=== PATIENT | male | born 2000 | race Hispanic/Latino ===

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

== ENCOUNTER 2020-06-03 00:06 | Inpatient (IN) | payer BC, OTHER, SELFPAY ==
[2020-06-03] VITALS (24 sets, daily range): BP systolic 125–148; BP diastolic 56–94
[~2020-06-03] VITALS: Ht 165.1 cm; Wt 81.4 kg
[2020-06-03 00:41] LABS: BASOPHILS % (AUTO) 0.3 % (0.0-5.0); EOSINOPHILS % (AUTO) 2.8 % (0.0-8.0); HEMATOCRIT 39.6 % (42-54); LYMPHOCYTES % (AUTO) 23.7 % (21.0-51.0); MEAN CORPUSCULAR HEMOGLOBIN 30.3 pg (27.0-33.0); MEAN CORPUSCULAR HGB CONC 34.6 g/dL (32.0-36.0); MEAN CORPUSCULAR VOLUME 87.6 fL (80-100); MONOCYTES % (AUTO) 10.3 % (3.0-13.0); NEUTROPHILS % (AUTO) 62.5 % (40.0-77.0); PLATELET COUNT (AUTO) 316 K/uL (130-400); RED BLOOD CELL COUNT(AUTO) 4.52 MIL/uL (4.50-6.20); RED CELL DISTRIBUTION WIDTH 11.5 % (11.0-15.5); WHITE BLOOD COUNT (AUTO) 12.5 K/uL (4.8-10.8)
[2020-06-03] MEDS ORDERED: MORPHINE SULFATE 2 MG/ML 1ML SYG ONE ×2 (00:46→10:59)
[2020-06-03 00:52] LABS: INR 0.88 (0.85-1.15); PARTIAL THROMBOPLASTIN TIME 29.7 SEC (26.3-35.5); PROTHROMBIN TIME 9.6 SEC (9.6-11.6)
[2020-06-03 00:58] LABS: CREATININE 0.9 mg/dL (0.5-1.5); POTASSIUM 3.6 mmol/L (3.5-5.1)
[2020-06-03 01:02] LABS: ALBUMIN 3.8 g/dL (3.5-5.0); BILIRUBIN,TOTAL 0.2 mg/dL (0.2-1.0); TOTAL PROTEIN, SERUM 8.4 g/dL (6.0-8.3)
[2020-06-03] MEDS ORDERED: IOHEXOL-350 75 ML VIAL IV ONE (01:34)
[2020-06-03] MEDS ORDERED: ZOSYN 3.375GM+NS 50ML 50 ML IV ONE ×2 (02:21→11:59)
[2020-06-03 02:33] LABS: APPEARANCE,URINE Clear (CLEAR); BILIRUBIN,URINE Negative (NEGATIVE); COLOR,URINE Yellow (YELLOW); GLUCOSE, URINE (UA) Negative (NEGATIVE); KETONES,URINE Negative (NEGATIVE); LEUKOCYTE ESTERASE ,URINE Negative (NEGATIVE); NITRATE,URINE Negative (NEGATIVE); OCCULT BLOOD,URINE Negative (NEGATIVE); PROTEIN,URINE Negative (NEGATIVE); UROBILINOGEN,URINE 0.2 mg/dL (0.2-1.0)
[2020-06-03] MEDS ORDERED: ONDANSETRON HCL 4 MG/2 ML VIAL IV PRN (03:30)
[2020-06-03] MEDS ORDERED: DiphenhydrAMINE HCL 50 MG/ML VIAL IV PRN (03:30)
[2020-06-03] MEDS ORDERED: DIPHENHYDRAMINE HCL 25 MG CAPSULE PO PRN (03:30)
[2020-06-03] MEDS ORDERED: GUAIFENESIN-DM 200/20 MG 10 ML PO PRN (03:30)
[2020-06-03] MEDS ORDERED: MAG HYDROX/AL HYDROX/SIMETH ES 30 ML SUSP UDCUP PO PRN (03:30)
[2020-06-03] MEDS ORDERED: MORPHINE SULFATE 2 MG/ML 1ML SYG IV PRN (03:30)
[2020-06-03] MEDS: ZOSYN 3.375GM+NS 50ML 50 ML IV SCH ×3 (03:30→19:50)
[2020-06-03] MEDS ORDERED: LACTULOSE 20 GM/30 ML UDCUP PO PRN (03:30)
[2020-06-03] MEDS ORDERED: ACETAMINOPHEN 325 MG TAB PO PRN ×2 (03:30)
[2020-06-03] MEDS ORDERED: NITROGLYCERIN 0.4 MG SL TAB SL PRN (03:30)
[2020-06-03] MEDS ORDERED: ZOLPIDEM TARTRATE 5 MG TAB PO PRN (03:30)
[2020-06-03] MEDS ORDERED: PHARMACY COMMUNICATION MISC SCH (04:30)
[2020-06-03] MEDS ORDERED: FAMOTIDINE/PF 20 MG/2 ML VIAL IV ONE (07:53)
[2020-06-03] MEDS ORDERED: MORPHINE SULFATE 4 MG/1ML SYG ONE (07:53)
[2020-06-03] MEDS: FAMOTIDINE/PF 20 MG/2 ML VIAL IV SCH ×2 (09:00→19:50)
[2020-06-03] MEDS ORDERED: DEXAMETHASONE SOD PHOSPHATE 10MG/ML 1ML VIAL ONE (14:27)
[2020-06-03] MEDS ORDERED: MIDAZOLAM HCL 1 MG/ML 2ML VIAL ONE (14:27)
[2020-06-03] MEDS ORDERED: SUCCINYLCHOLINE CHLORIDE 20 MG/ML 10 ML VIAL ONE (14:27)
[2020-06-03] MEDS ORDERED: LIDOCAINE PF 2% 5ML ABBOJECT ONE (14:27)
[2020-06-03] MEDS ORDERED: ONDANSETRON HCL 4 MG/2 ML VIAL ONE (14:28)
[2020-06-03] MEDS ORDERED: PROPOFOL 10 MG/ML 20ML VIAL IV ONE (14:28)
[2020-06-03] MEDS ORDERED: GLYCOPYRROLATE 1 MG/5 ML SYRINGE ONE (14:28)
[2020-06-03] MEDS ORDERED: NEOSTIGMINE 5MG/5ML SYR IV ONE (14:29)
[2020-06-03] MEDS ORDERED: FENTANYL CITRATE PF 50 MCG/1 ML 2ML VIAL ONE ×3 (14:29→16:11)
[2020-06-03] MEDS ORDERED: ROCURONIUM 10MG/1ML SYR 10 MG/ML ML ONE (14:29)
[2020-06-03] MEDS ORDERED: BUPIVACAINE/PF 0.5% 10ML VIAL ONE (15:33)
--- NOTE | 2020-06-03 16:54 | NUR ---
KWADWO NOTE/IA UNABLE TO SPEAK TO PATIENT IN ROOM, NEXT OF KIN CALLED, ROHINI LEDBETTER. PER MOTHER, PATIENT LIVES WITH EXTENSIVE FAMILY, NO DME, WORKS, DRIVES, NO COMMUNITY RESOURCES IN USE, AND FEELS SAFE FOR PATIENT TO RETURN HOME ONCE DISCHARGED. Addendum: 06/04/20 at 1721 by DILLON ZAPATA RN CM Amended: Links added.
[2020-06-03] MEDS ORDERED: KETOROLAC TROMETHAMINE 30MG/ML ONE (17:24)
[2020-06-03] MEDS ORDERED: MEPERIDINE-PF 25 MG/ML SYG ONE (17:35)
[2020-06-03] MEDS: LACTATED RINGERS 1000ML 1,000 ML, LACTATED RINGERS 1000ML 1,000 ML IV SCH ×2 (19:24→19:51)
[2020-06-03] MEDS ORDERED: LACTATED RINGERS 1000ML 1,000 ML IV ONE (19:46)
[2020-06-04] VITALS (7 sets, daily range): BP systolic 128–137; BP diastolic 70–84
[2020-06-04] MEDS ORDERED: LACTATED RINGERS 1000ML 1,000 ML IV ONE (02:58)
[2020-06-04] MEDS: LACTATED RINGERS 1000ML 1,000 ML, LACTATED RINGERS 1000ML 1,000 ML IV SCH ×2 (02:59→18:40)
[2020-06-04] MEDS ORDERED: KETOROLAC TROMETHAMINE 30MG/ML IV PRN (03:45)
[2020-06-04] MEDS: ZOSYN 3.375GM+NS 50ML 50 ML IV SCH ×3 (03:47→18:26)
--- NOTE | 2020-06-04 04:29 | NUR ---
STATUS Pt ambulating in the room,lalo well.Post open Appendectomy 06/03/2020.Abdominal dressing dry and intact,Bradley to left side to bulb suction with approx 50 ml serousanguinous drainage.Abdomen soft,hypoactive bowel sounds.Pt was medicated with Morphine for pain and verbalized relief of pain.Iv site to rt antecubital site within normal limits.
[2020-06-04 04:38] LABS: BASOPHILS % (AUTO) 0.2 % (0.0-5.0); HEMATOCRIT 36.8 % (42-54); LYMPHOCYTES % (AUTO) 5.9 % (21.0-51.0); MEAN CORPUSCULAR HEMOGLOBIN 30.2 pg (27.0-33.0); MEAN CORPUSCULAR HGB CONC 34.5 g/dL (32.0-36.0); MEAN CORPUSCULAR VOLUME 87.6 fL (80-100); MONOCYTES % (AUTO) 9.6 % (3.0-13.0); NEUTROPHILS % (AUTO) 83.7 % (40.0-77.0); PLATELET COUNT (AUTO) 315 K/uL (130-400); RED CELL DISTRIBUTION WIDTH 11.6 % (11.0-15.5); WHITE BLOOD COUNT (AUTO) 17.7 K/uL (4.8-10.8)
[2020-06-04 05:15] LABS: BILIRUBIN,TOTAL 0.6 mg/dL (0.2-1.0); CREATININE 0.8 mg/dL (0.5-1.5); POTASSIUM 3.8 mmol/L (3.5-5.1); TOTAL PROTEIN, SERUM 7.5 g/dL (6.0-8.3)
[2020-06-04] MEDS: FAMOTIDINE/PF 20 MG/2 ML VIAL IV SCH ×2 (09:03→20:22)
--- NOTE | 2020-06-04 16:25 | NUR ---
dressing changed to abd area including rae dressing changed. okay as per SUSI zafar.
[2020-06-04] MEDS: MORPHINE SULFATE 4 MG/1ML SYG IV PRN (20:22)
[2020-06-05] MEDS: MORPHINE SULFATE 4 MG/1ML SYG IV PRN (02:51)
[2020-06-05] MEDS: ZOSYN 3.375GM+NS 50ML 50 ML IV SCH ×3 (02:52→21:12)
[2020-06-05 03:29] VITALS: BP 124/79
[2020-06-05 04:46] LABS: BASOPHILS % (AUTO) 0.2 % (0.0-5.0); HEMATOCRIT 40.4 % (42-54); LYMPHOCYTES % (AUTO) 4.1 % (21.0-51.0); MEAN CORPUSCULAR HEMOGLOBIN 31.2 pg (27.0-33.0); MEAN CORPUSCULAR HGB CONC 34.7 g/dL (32.0-36.0); MONOCYTES % (AUTO) 11.3 % (3.0-13.0); NEUTROPHILS % (AUTO) 83.8 % (40.0-77.0); PLATELET COUNT (AUTO) 358 K/uL (130-400); RED BLOOD CELL COUNT(AUTO) 4.49 MIL/uL (4.50-6.20); RED CELL DISTRIBUTION WIDTH 11.8 % (11.0-15.5); WHITE BLOOD COUNT (AUTO) 21.3 K/uL (4.8-10.8)
[2020-06-05 05:04] LABS: ALBUMIN 3.2 g/dL (3.5-5.0); BILIRUBIN,TOTAL 1.4 mg/dL (0.2-1.0); POTASSIUM 4.1 mmol/L (3.5-5.1); TOTAL PROTEIN, SERUM 8.2 g/dL (6.0-8.3)
[2020-06-05 08:00] VITALS: BP 134/84
[2020-06-05] MEDS: FAMOTIDINE/PF 20 MG/2 ML VIAL IV SCH ×2 (08:26→21:12)
[2020-06-05 12:00] VITALS: BP 135/86
[2020-06-05] MEDS: FLUCONAZOLE 400 MG/NS 200 ML 200 ML IV SCH (13:04)
[2020-06-05 16:00] VITALS: BP 126/84
[2020-06-05] MEDS: LACTATED RINGERS 1000ML 1,000 ML, LACTATED RINGERS 1000ML 1,000 ML IV SCH (19:24)
[2020-06-05 20:00] VITALS: BP 118/61
[2020-06-05] MEDS ORDERED: ZOSYN 3.375GM+NS 50ML 50 ML IV ONE (20:15)
[2020-06-06] VITALS: BP 103/50
[2020-06-06 03:44] VITALS: BP 114/64
[2020-06-06 04:26] LABS: BASOPHILS % (AUTO) 0.4 % (0.0-5.0); EOSINOPHILS % (AUTO) 2.7 % (0.0-8.0); LYMPHOCYTES % (AUTO) 13.6 % (21.0-51.0); MEAN CORPUSCULAR HEMOGLOBIN 30.6 pg (27.0-33.0); MONOCYTES % (AUTO) 13.2 % (3.0-13.0); NEUTROPHILS % (AUTO) 69.6 % (40.0-77.0); PLATELET COUNT (AUTO) 296 K/uL (130-400); RED BLOOD CELL COUNT(AUTO) 3.89 MIL/uL (4.50-6.20); RED CELL DISTRIBUTION WIDTH 11.7 % (11.0-15.5); WHITE BLOOD COUNT (AUTO) 14.9 K/uL (4.8-10.8)
[2020-06-06 04:53] LABS: ALBUMIN 2.3 g/dL (3.5-5.0); BILIRUBIN,TOTAL 1.4 mg/dL (0.2-1.0); POTASSIUM 3.9 mmol/L (3.5-5.1); TOTAL PROTEIN, SERUM 6.7 g/dL (6.0-8.3)
[2020-06-06] MEDS: ZOSYN 3.375GM+NS 50ML 50 ML IV SCH ×3 (06:00→21:03)
[2020-06-06 08:00] VITALS: BP 116/57
[2020-06-06] MEDS: LACTATED RINGERS 1000ML 1,000 ML IV SCH ×2 (11:30→21:03)
[2020-06-06 12:00] VITALS: BP 121/61
[2020-06-06] MEDS: FAMOTIDINE/PF 20 MG/2 ML VIAL IV SCH ×2 (14:26→21:03)
[2020-06-06] MEDS: FLUCONAZOLE 400 MG/NS 200 ML 200 ML IV SCH (14:27)
[2020-06-06 16:00] VITALS: BP 122/66
[2020-06-06 20:00] VITALS: BP 133/53
[2020-06-07] VITALS (7 sets, daily range): BP systolic 112–142; BP diastolic 71–85
[2020-06-07] MEDS: LACTATED RINGERS 1000ML 1,000 ML IV SCH ×3 (03:30→19:30)
[2020-06-07] MEDS: ZOSYN 3.375GM+NS 50ML 50 ML IV SCH ×3 (05:39→21:03)
[2020-06-07 06:08] LABS: BASOPHILS % (AUTO) 0.4 % (0.0-5.0); HEMATOCRIT 33.1 % (42-54); LYMPHOCYTES % (AUTO) 11.2 % (21.0-51.0); MEAN CORPUSCULAR HEMOGLOBIN 30.8 pg (27.0-33.0); MEAN CORPUSCULAR HGB CONC 34.4 g/dL (32.0-36.0); MEAN CORPUSCULAR VOLUME 89.5 fL (80-100); MONOCYTES % (AUTO) 11.4 % (3.0-13.0); NEUTROPHILS % (AUTO) 73.3 % (40.0-77.0); PLATELET COUNT (AUTO) 389 K/uL (130-400); RED CELL DISTRIBUTION WIDTH 11.5 % (11.0-15.5); WHITE BLOOD COUNT (AUTO) 14.9 K/uL (4.8-10.8)
[2020-06-07 06:27] LABS: CREATININE 0.8 mg/dL (0.5-1.5); POTASSIUM 3.7 mmol/L (3.5-5.1)
[2020-06-07] MEDS: FAMOTIDINE/PF 20 MG/2 ML VIAL IV SCH ×2 (10:36→21:04)
[2020-06-07] MEDS: FLUCONAZOLE 400 MG/NS 200 ML 200 ML IV SCH (12:46)
--- NOTE | 2020-06-07 13:03 | NUR ---
dressing changed to abd and drain.. incisions clean and dry . ghazala intact .patient tolerated well
[2020-06-08] VITALS: BP 144/72
[2020-06-08] MEDS: LACTATED RINGERS 1000ML 1,000 ML IV SCH (03:33)
[2020-06-08 04:00] VITALS: BP 134/77
[2020-06-08] MEDS: ZOSYN 3.375GM+NS 50ML 50 ML IV SCH ×2 (05:48→14:12)
[2020-06-08 06:08] LABS: BASOPHILS % (AUTO) 0.4 % (0.0-5.0); EOSINOPHILS % (AUTO) 3.9 % (0.0-8.0); HEMATOCRIT 33.6 % (42-54); LYMPHOCYTES % (AUTO) 13.8 % (21.0-51.0); MEAN CORPUSCULAR HEMOGLOBIN 30.6 pg (27.0-33.0); MEAN CORPUSCULAR HGB CONC 34.2 g/dL (32.0-36.0); MEAN CORPUSCULAR VOLUME 89.4 fL (80-100); NEUTROPHILS % (AUTO) 71.1 % (40.0-77.0); PLATELET COUNT (AUTO) 398 K/uL (130-400); RED BLOOD CELL COUNT(AUTO) 3.76 MIL/uL (4.50-6.20); RED CELL DISTRIBUTION WIDTH 11.5 % (11.0-15.5)
[2020-06-08 08:00] VITALS: BP 128/75
[2020-06-08] MEDS: FAMOTIDINE/PF 20 MG/2 ML VIAL IV SCH (08:43)
[2020-06-08 11:53] VITALS: BP 139/78
[2020-06-08] MEDS: FLUCONAZOLE 400 MG/NS 200 ML 200 ML IV SCH (12:44)
--- NOTE | 2020-06-08 16:50 | NUR ---
PT IS REQUESTING TO LEAVE AMA. DR LANGSTON AND DR MACIEL MADE AWARE. PT IS MADE AWARE OF RISK FOR INFECTION. DR LANGSTON SPOKE WITH PT HOWEVER, PT CONTINUES TO REQUEST TO LEAVE AMA. ORDERS FROM DR MACIEL GIVEN TO REMOVE ROSMERY DRAIN AND TO LET PT SIGN AMA IF HE DECIDES TO. DR MACIEL WANTS TO KEEP PT ANOTHER DAY TO MONITOR HIM HOWEVER PT REFUSES TO STAY. PER MD ORDER ROSMERY DRAIN WAS REMOVED. PT TOLERATED WELL. JOSE TO ABD INTACT. INSTRUCTED PT TO FOLLOW UP WITH DR MACIEL. OFFICE NUMBER PROVIDED TO PT. PT STATES UNDERSTANDING THE RISKS TO LEAVING AMA AND THE IMPORTANCE OF FOLLOWING UP WITH DR MACIEL.
== END 2020-06-08 18:00 | disposition left against medical advice (07) | DRG 340 ==
LOC: EDH 00:06 → EDHIP 03:24 → 3CH 18:12
PROVIDERS: ADMIT Internal Medicine; ATTEND Internal Medicine
PROC: 0DTJ0ZZ Resection of Appendix, Open Approach (ICD-10-PCS; principal; 2020-06-03 15:42)
PROC: 0WJG4ZZ Inspection of Peritoneal Cavity, Percutaneous Endoscopic Approach (ICD-10-PCS; 2020-06-03 15:42)
DX: K35.33 Acute appendicitis with perforation, localized peritonitis, and gangrene, with abscess (principal); E66.9 Obesity, unspecified; Z53.29 Procedure and treatment not carried out because of patient's decision for other reasons; Z20.828 Contact with and (suspected) exposure to other viral communicable diseases; K66.0 Peritoneal adhesions (postprocedural) (postinfection); Z68.29 Body mass index [BMI] 29.0-29.9, adult; Z53.31 Laparoscopic surgical procedure converted to open procedure
CPT/HCPCS: 36415; 74177; 80048; 80053; 81003; 83605; 83690; 84145; 85025; 85610; 85730; 87426; G0378; J0330; J1100; J1450; J1885; J2001; J2175; J2250; J2270; J2405; J2543; J2704; J2710; J3010; J3490; J7030; J7120; Q9967

== ENCOUNTER 2025-03-01 20:16 | Emergency (ER) | payer SELFPAY ==
[~2025-03-01] VITALS: Ht 170.2 cm; Wt 93.9 kg
[~2025-03-01 20:16] MED LIST changes: -AMOX-426 PO; +AMOX-429 PO
--- NOTE | 2025-03-01 20:24 | ERN ---
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 THIS HAPPENED APPROXIMATELY 230 THIS AFTERNOON. HE HAS BEEN ABLE TO AMBULATE ONLY WITH PAINFUL WEIGHT BEAR. SIGNIFICANT SWELLING NOTED TO ANKLE. NEUROVASCULAR CMS INTACT. HE HAS TAKEN NOTHING PRIOR TO ARRIVAL FOR PAIN. Allergies: Coded Allergies: No Known Drug Allergies (Unverified Allergy, Unknown, 09/22/17) Home Meds Active Scripts Amoxicillin/Potassium Clav (Augmentin 875-125 Tablet) 1 Each Tablet, 1 EACH PO BID for 10 Days, #20 TAB Prov:HOLLY CALL MD 04/23/21 Past Medical History Past Medical History: No Pertinent History Surgical History: Appendectomy RN Note Reviewed/Agreed w/PFSH: Yes Review of System Dictation CONSTITUTIONAL: NEGATIVE EXCEPT FOR HPI HEAD/FACE: NEGATIVE EXCEPT FOR HPI EENT: NEGATIVE EXCEPT FOR HPI RESPIRATORY: NEGATIVE EXCEPT FOR HPI GASTROINTESTINAL/ABDOMINAL: NEGATIVE EXCEPT FOR HPI GENITOURINARY: NEGATIVE EXCEPT FOR HPI MUSCULOSKELETAL: NEGATIVE EXCEPT FOR HPI LEFT LATERAL ANKLE PAIN SWELLING INTEGUMENTARY: NEGATIVE EXCEPT FOR HPI NEUROLOGICAL/PSYCH: NEGATIVE EXCEPT FOR HPI HEMATOLOGIC/LYMPHATIC: NEGATIVE EXCEPT FOR HPI ALL SYSTEMS NEGATIVE, EXCEPT NOTED ABOVE. 13 POINT REVIEW OF SYSTEMS ASSESSED AND ALL NEGATIVE EXCEPT FOR ABOVE. Initial Vital Sign VS Vital Signs Date Time Temp Pulse Resp B/P (MAP) Pulse Ox O2 Delivery O2 Flow Rate FiO2 03/01/25 20:18 98.1 82 19 144/98 98 Room Air 03/01/25 20:30 0 21 Physical Exam Dictation VITAL SIGNS REVIEW GENERAL APPEARANCE: ALERT, ORIENTED X 3, MONITOR ACUTE DISTRESS, WELL DEVELOPED, NOURISHED. HEAD AND FACE: NON-TRAUMATIC. EYES: PERRL, PINK CONJUNCTIVAS, EYELID NO TRAUMA, ANTERIOR CHAMBER WITH ARCUS SENILIS. EARS: PINNAS INTACT AND NO SIGNS OF TRAUMA OR ERYTHEMA EAR CANALS CLEAR AND NO DISCHARGE TM NO ERYTHEMA NOSE: NO DISCHARGE, NO BLEEDING. OROPHARYNX: MOUTH NORMAL, TONGUE PINK, PHARYNX CLEAR,NO ERYTHEMA, TONSILS NO EXUDATES, NO ABSCESSES NOTED, MUCOUS M EMBRANE MOIST NECK: SUPPLE, NON-TENDER, NO THYROMEGALY, NO MASSES, NO JVD, NO BRUITS BREAST:DEFERRED CHEST:NO TENDERNESS, NO CREPITUS, NO PARADOXICAL MOVEMENT, NO RETRACTIONS LUNGS:CLEAR, WELL-VENTILATED, SYMMETRIC, NO RALES, NO WHEEZING, NO RHONCHI, NO STRIDOR, GOOD BREATH SOUNDS BILATERALLY HEART: REGULAR RATE, REGULAR RHYTHM, NO MURMUR, NO GALLOPS VASCULAR: NO PERIPHERAL EDEMA, ABDOMEN: SOFT, POSITIVE BOWEL SOUNDS, NONDISTENDED, NO GUARDING, NONTENDER, NO REBOUND, NO MASSES NO HEPATOMEGALY, NO SPLENOMEGALY, NO MAYES'S SIGN, NO HERNIAS. RECTAL: DEFERRED GENITAL: DEFERRED NEUROLOGICAL: NORMAL SPEECH, MOTOR FUNCTION INTACT, SENSORY FUNCTION INTACT MUSCULOSKELETAL: NECK NONTENDER, FULL RANGE OF MOTION, BACK NONTENDER, FULL RANGE OF MOTION, EXTREMITIES: LEFT LATERAL MALLEOLAR PAIN SWELLING WITH DECREASED RANGE OF MOTION. SKIN INTACT. NEUROVASCULAR CMS GROSSLY INTACT SKIN: COLOR PINK, DRY, NO TURGOR, NO RASH, NO LACERATIONS, NO ABRASIONS, NO CONTUSIONS. LYMPHATIC: DEFERRED Results (Laboratory/Radiology) Laboratory/Radiology 2044/no fracture noted on ankle x-ray Labs Reviewed?: Yes ED Course ED Course Orders Procedure Category Date Status Time Posterior Ankle Splint BEBETO.ER 03/01/25 In Process 20:20 Crutches W/Training CPOE 03/01/25 Transmitted (Er) 20:20 Ankle Comp 3vws Lt RAD 03/01/25 Taken 20:20 Hydrocodone/Apap PHA 03/01/25 Complete 5/325 (Monon 5/325mg) 20:30 Ibuprofen 800 Mg Tab PHA 03/01/25 Complete (Motrin) 20:30 Current Medications Medications (Trade) Dose Ordered Sig/Maria Route PRN Reason Start Time Stop Time Status Last Admin Dose Admin Acetaminophen/ Hydrocodone Bitart (NORco 5/325MG) 1 tab ONCE ONCE PO 03/01/25 20:30 03/01/25 20:31 DC Ibuprofen (moTRIN) 800 mg ONCE ONCE PO 03/01/25 20:30 03/01/25 20:31 DC Vital Signs Date Time Temp Pulse Resp B/P (MAP) Pulse Ox O2 Delivery O2 Flow Rate FiO2 03/01/25 20:30 98.1 82 19 144/98 98 Room Air* 0 21 03/01/25 20:18 98.1 82 19 144/98 98 Room Air 2044/posterior splint placed by tech distal neurovascular CMS intact post placement. Medical Decision Making MDM Medical discharge making based on pain management, x-ray of left ankle Splint placed after x-ray and patient placed on no weight-bearing status with crutches. Discharged home to follow up with Dr. Yordy Wolf in the next several days. DX & DISP Disposition: Discharge Departure Impression: Primary Impression: Moderate left ankle sprain Additional Impression: Fall Condition: Stable Scripts Tramadol HCl/Acetaminophen (Tramadol-Acetaminophn 37.5-325) 37.5 Mg-325 Mg Tablet 2 TAB PO Q6HPRN PRN for pain, #24 TAB 0 Refills Two tablets by mouth every 6 hours prn pain. Maximum eight tablets in 24 hours Prov: YVETTE MCCORMICK NP 03/01/25 Additional Instructions: Follow-up with primary care provider in 1 to 2 days. Take medications as directed here in the emergency room. Okay to continue home medications unless otherwise discussed during your visit in the emergency room today. Return to your nearest emergency room if symptoms worsen or if there is no improvement. Call 911 if you need immediate assistance. Take Tylenol or Motrin [id number] as needed and if no contraindications are present. Increase oral hydration. A wound culture or urine culture was ordered here in the emergency room department please follow-up with primary care provider and advise them to get repeat ports from our facility. If you had any Avery wrap/splints that were applied here, please do not remove them until you see your primary care or specialty. Cool compresses to left ankle three to 4 times a day and keep elevated. Splint/crutches/no weight-bearing until cleared by orthopedic surgeon, call for an appointment on Tuesday. Referrals: SELF,REFERRAL (PCP) SANTOS WOLF II, MD Time of Disposition: 20:47 I have reviewed the case, and I agree with, Diagnosis and Plan YVETTE MCCORMICK NP March 01, 2025 20:24
[2025-03-01] MEDS ORDERED: TRAM-543 PO (20:49)
[2025-03-01] MEDS: HYDROcodone/APAP 5/325 1 TAB TABLET PO ONE (21:01)
[2025-03-01] MEDS: ibuPROFEN 800 MG TAB PO ONE (21:01)
--- NOTE | 2025-03-01 21:05 | NUR ---
SPLINT AND CRUTCHES GIVENTO PT, PT TOLERATED WELL
--- NOTE | 2025-03-01 21:07 | HMCIMG ---
ANKLE COMP 3VWS LT INDICATION: LEFT LATERAL MALLEOLAR PAIN SWELLING AFTER TWISTING ANKLE TECHNIQUE: ANKLE COMP 3VWS LT. FINDINGS AND IMPRESSION: No displaced fracture or dislocation is seen. Correlate clinically. There is diffuse soft tissue swelling No radiopaque foreign body is identified.
[2025-03-01 21:31] VITALS: BP 135/89; PULSE 78; RESP 19; TEMP 98.1; O2SAT 98
== END 2025-03-01 21:35 | disposition home or self-care (01) ==
LOC: EDH 20:16
DX: S93.402A Sprain of unspecified ligament of left ankle, initial encounter (principal); Z90.49 Acquired absence of other specified parts of digestive tract; Z79.899 Other long term (current) drug therapy; X50.1XXA Overexertion from prolonged static or awkward postures, initial encounter; Y93.89 Activity, other specified; Y92.89 Other specified places as the place of occurrence of the external cause; Y99.8 Other external cause status
CPT/HCPCS: 29515; 73610; 99283